=== PATIENT | male | born 1980 | race African-American/Black ===

== ENCOUNTER 2019-04-14 17:34 | Emergency (ER) | payer MEDICAID, SELFPAY ==
[2019-04-14 17:48] VITALS: BP 144/69; PULSE 69; RESP 16; TEMP 36.2; O2SAT 100
--- NOTE | 2019-04-14 18:16 | ED.MALEGU ---
HPI - Male Genitourinary General Chief complaint: Urogenital-Male Stated complaint: STD EXPOSURE Time Seen by Provider: 04/14/19 18:07 Source: patient Mode of arrival: ambulatory Limitations: no limitations History of Present Illness HPI Narrative: 39-year-old male presents for evaluation of STI testing after he was told 3 days ago that his sexual partner was tested positive for trichomonas. Patient denies any symptoms of dysuria, frequency, urgency, penile discharge, lesions, rash, testicular pain, swelling, fever, sore throat, malaise. He reports 1 sexual partner in the past month, 2 sexual partners in the past 3 months, 2 sexual partners in the past year. Females only. Uses condoms sometimes. No prior history of STI. Denies consuming alcohol. Related Data Allergies Allergy/AdvReac Type Severity Reaction Status Date / Time No Known Allergies Allergy Mild Verified 04/14/19 17:53 Review of Systems Review of Systems: Narrative: CONSTITUTIONAL: Denies fever, chills, weight loss, or sweats. CARDIOVASCULAR: Denies chest pain, palpitations, or edema. RESPIRATORY: Denies cough or dyspnea. GASTROINTESTINAL: Denies abdominal pain, nausea, vomiting, or diarrhea. GENITOURINARY: Denies dysuria, hematuria, urinary frequency, malordous urine SKIN: Denies rash or itching. NEUROLOGIC: Denies headache, numbness, or weakness. All systems reviewed & are unremarkable except as noted in HPI and below PMFSH Comments At the time of my signature, I agree with nursing past medical, surgical, social and family history. There is no relevant family history pertinent to the presenting complaint. Exam Narrative: Exam Narrative: GENERAL: No distress, well appearing, well nourished, alert and calm HEAD: Normocephalic, atraumatic. EYES: Pupils equal, round. Extraocular movements intact. Conjunctivae without redness or drainage. MOUTH: Mucous membranes moist. No lesions. No cyanosis. Dentition grossly normal. THROAT: Oropharynx without signs erythema, exudates or lesions. Tonsils not enlarged. NECK: Supple. No lymphadenopathy. RESPIRATORY: Airway patent. Chest clear to auscultation bilaterally. Breath sounds equal bilaterally. No retractions. CARDIOVASCULAR: Regular rate and rhythm. No murmurs, rubs, gallops, or clicks. Capillary refill <2 seconds. GASTROINTESTINAL: Soft, nontender, non-distended. Bowel sounds normoactive. No masses. No organomegaly. No CVA tenderness : Normal genitalia with appropriate pubic hair. No penile lesions, no penile discharge. No testicular swelling or tenderness noted. No inguinal lymphadenopathy noted. SKIN: Color normal. Warm and dry. No rashes. PSYCHIATRIC: Responds appropriately to providers. Course Vital Signs Vital signs: Vital Signs Temperature 97.2 F L 04/14/19 17:48 Pulse Rate 69 04/14/19 17:48 Respiratory Rate 16 04/14/19 17:48 Blood Pressure 144/69 H 04/14/19 17:48 Pulse Oximetry 100 04/14/19 17:48 Temperature 97.2 F L 04/14/19 17:48 Pulse Rate 69 04/14/19 17:48 Respiratory Rate 16 04/14/19 17:48 Blood Pressure 144/69 H 04/14/19 17:48 Pulse Oximetry 100 04/14/19 17:48 The patient has been informed that they may have pre-hypertension or Hypertension based on a BP reading in the department. I recommend that the patient call the primary care provider listed on their discharge instructions or a physician of their choice this week to arrange follow up for further evaluation of possible pre-hypertension or Hypertension MDM - Male Genitourinary MDM Narrative Medical decision making narrative: Patient is in no acute distress and is non toxic appearing. He is denying any current symptoms. Obtain urine specimen for gonorrhea, chlamydia, trichomonas. Since patient was exposed to a partner with trichomonas, we will treat him with 2 g of metronidazole one-time dose. This was sent to the pharmacy. Patient aware that he will get the other testing back in 5 to 7 days. Instructed kayode
== END 2019-04-14 18:28 | disposition home or self-care (01) ==
PROVIDERS: Emergency Provider Nurse Practitioner
DX: Z20.2 Contact with and (suspected) exposure to infections with a predominantly sexual mode of transmission (principal); Z11.3 Encounter for screening for infections with a predominantly sexual mode of transmission
CPT/HCPCS: 87491; 87591; 87661; 99213; G0463

== ENCOUNTER → 2020-03-19 | Outpatient (NON) | payer BC, SELFPAY ==
[2020-03-19 15:27] LABS: IFOB Positive Control Positive; Immunochemical Fecal Occult Bl Negative (N)
== END | disposition home or self-care (01) ==
PROVIDERS: Visit Provider Family Medicine
DX: D64.9 Anemia, unspecified (principal)
CPT/HCPCS: 82274